=== PATIENT | male | born 1990 | race Two or more races ===

== ENCOUNTER → 2016-09-21 | Outpatient (CLI) | payer OTHER | END | disposition home or self-care (01) | LOC: CFH 16:17 | PROVIDERS: ATTEND Student in an Organized Health Care Education/Training Program | DX: M54.5 Low back pain (principal) | CPT/HCPCS: 72110 ==

== ENCOUNTER 2018-07-01 08:30 | Emergency (ER) | payer SELFPAY ==
[~2018-07-01] VITALS: Ht 175.3 cm; Wt 72.6 kg
--- NOTE | 2018-07-01 08:44 | NUR ---
28 Y/O MALE PRESENTS TO ED WITH C/O EPISTAXIS. PER PT "I HAVE GOTTEN BLOODY NOSES BEFORE, BUT THIS ONE STARTED AT MIDNIGHT. I PLUGGED MY NOSE UP AND WOULD LAY DOWN. WHEN I WOULD REMOVE THE PAPER TOWEL AND BLOW MY NOSE, CLOTS WOULD COME OUT AND IT WOULD START BLEEDING AGAIN. I KEPT DOING IT ALL NIGHT HOPING IT WOULD STOP. IT HASN'T, SO I'M HERE." NO ACUTE DISTRESS NOTED. NO C/O TRAUMA, SYNCOPE,
[2018-07-01] MEDS ORDERED: COCAINE TOPICAL SOLN 4%, 4ML TP ONE (09:00)
[2018-07-01] MEDS ORDERED: TRANEXAMIC ACID 100 MG/ML, 10ML TP ONE (09:00)
[2018-07-01] MEDS ORDERED: BACITRACIN OINT 500U/GM, 15 GM TP ONE (09:00)
[2018-07-01] MEDS ORDERED: OXYMETAZOLINE NASAL SPRAY 0.05%, 15ML NAS ONE (09:00)
[2018-07-01] MEDS ORDERED: OXYMETAZOLINE NASAL SPRAY 0.05%,30ML ONE (09:12)
[2018-07-01] MEDS ORDERED: BACITRACIN ZINC OINT 500U/GM, 0.9 GM ONE ×2 (09:13→10:46)
[2018-07-01] MEDS ORDERED: COCAINE TOPICAL SOLN 4%, 4ML ONE (09:13)
[2018-07-01] MEDS ORDERED: TRANEXAMIC ACID 100 MG/ML, 10ML ONE (09:13)
[2018-07-01 09:28] VITALS: BP 132/83
--- NOTE | 2018-07-01 09:28 | NUR ---
PT RESTING ON CHAIR. NO ACUTE DISTRESS NOTED. VSS. NO NEEDS REQUESTED AT THIS TIME.
--- NOTE | 2018-07-01 10:53 | NUR ---
Patient/Caregiver given discharge instructions and they have confirmed that they understand the instructions. Patient ambulatory with steady gait. PT LEFT WITH ALL PERSONAL BELONGINGS.
== END 2018-07-01 10:55 | disposition home or self-care (01) ==
LOC: ED 09:37
DX: R04.0 Epistaxis (principal)
CPT/HCPCS: 99283